=== PATIENT | male | born 1930 | race Caucasian/White ===

== ENCOUNTER 2016-07-11 09:51 | Outpatient (CLI) | END 2016-07-11 09:52 | disposition home or self-care (01) ==

== ENCOUNTER 2016-07-31 09:26 | Outpatient (CLI) | payer MEDICARE, OTHER | END 2016-07-31 09:27 | disposition home or self-care (01) | DX: I42.9 Cardiomyopathy, unspecified (principal); I48.92 Unspecified atrial flutter; Z79.899 Other long term (current) drug therapy ==

== ENCOUNTER 2016-08-01 10:26 | Outpatient (CLI) | payer MEDICARE, OTHER | END 2016-08-01 10:27 | disposition home or self-care (01) | DX: R06.00 Dyspnea, unspecified (principal); I48.2 Chronic atrial fibrillation; I51.7 Cardiomegaly; Z95.0 Presence of cardiac pacemaker; R91.8 Other nonspecific abnormal finding of lung field ==

== ENCOUNTER 2016-08-03 12:07 | Outpatient (CLI) | payer MEDICARE, OTHER | END 2016-08-03 12:08 | disposition home or self-care (01) | DX: I48.91 Unspecified atrial fibrillation (principal) ==

== ENCOUNTER 2016-08-06 09:27 | Outpatient (CLI) | payer MEDICARE, OTHER | END 2016-08-06 09:28 | disposition home or self-care (01) | DX: I48.91 Unspecified atrial fibrillation (principal); R06.00 Dyspnea, unspecified; I08.1 Rheumatic disorders of both mitral and tricuspid valves ==

== ENCOUNTER 2016-08-06 10:27 | Outpatient (CLI) | payer MEDICARE, OTHER | END 2016-08-06 10:28 | disposition home or self-care (01) | DX: I48.91 Unspecified atrial fibrillation (principal) ==

== ENCOUNTER 2016-08-23 11:15 | Outpatient (CLI) | payer MEDICARE, OTHER | END 2016-08-23 11:16 | disposition home or self-care (01) | DX: I48.91 Unspecified atrial fibrillation (principal) ==

== ENCOUNTER 2016-09-07 10:55 | Outpatient (CLI) | payer MEDICARE, OTHER | END 2016-09-07 10:56 | disposition home or self-care (01) | DX: I48.91 Unspecified atrial fibrillation (principal); R30.0 Dysuria ==

== ENCOUNTER 2016-09-20 10:39 | Outpatient (CLI) | payer MEDICARE, OTHER | END 2016-09-20 10:40 | disposition home or self-care (01) | DX: I25.10 Atherosclerotic heart disease of native coronary artery without angina pectoris (principal); I48.91 Unspecified atrial fibrillation ==

== ENCOUNTER 2016-11-13 12:09 | Outpatient (CLI) | payer MEDICARE, OTHER | END 2016-11-13 12:10 | disposition home or self-care (01) | DX: I48.91 Unspecified atrial fibrillation (principal) ==

== ENCOUNTER 2016-12-20 10:25 | Outpatient (CLI) | payer MEDICARE, OTHER | END 2016-12-20 10:26 | disposition home or self-care (01) | LOC: LAB 10:25 | PROVIDERS: ATTEND Internal Medicine | DX: I48.91 Unspecified atrial fibrillation (principal) | CPT/HCPCS: 85610 ==

== ENCOUNTER 2017-01-14 09:57 | Outpatient (CLI) | payer MEDICARE, OTHER ==
[2017-01-14 10:34] LABS: PT - PROTHROMBIN TIME 22.5 secs (9.9-12.6)
[2017-01-14 10:37] LABS: CREATININE 1.2 mg/dL (0.6-1.2)
== END 2017-01-14 09:58 | disposition home or self-care (01) ==
LOC: LAB 09:57
PROVIDERS: ATTEND Internal Medicine Critical Care Medicine
DX: R06.00 Dyspnea, unspecified (principal)
CPT/HCPCS: 36415; 82565; 85610

== ENCOUNTER 2017-02-18 09:14 | Outpatient (CLI) | payer MEDICARE, OTHER ==
--- NOTE | 2017-02-18 12:41 | CT Report ---
CT ABDOMEN AND PELVIS WITHOUT CONTRAST: 02/18/2017 CLINICAL INDICATION: Hematuria, flank pain. TECHNIQUE: Axial CT images of the abdomen and pelvis were obtained without oral or intravenous contr ast. FINDINGS: Limited evaluation of the lung bases demonstrates emphysematous changes and cardiomegaly. A pacemaker is noted. ABDOMEN: There is a 3 mm calculus in the right kidney. The left kidney appears unremarkable. No hy dronephrosis or hydroureter is seen. The liver, spleen, pancreas, and adrenal glands appear unremark able. The patient is status post cholecystectomy. A small hiatal hernia is noted. No bowel dilatat ion, free gas, or free fluid is present. No abdominal adenopathy is seen. PELVIS: Sigmoid diverticulosis is present, without CT evidence of diverticulitis. The appendix is s een in the right lower quadrant, and is normal in caliber. Imaging of the lower pelvis is limited by streak artifact from the right hip replacement. No adenopathy or free fluid is seen. Osseous structures demonstrate degenerative and postsurgical changes. IMPRESSION: A 3 MM RIGHT RENAL CALCULUS, WITHOUT EVIDENCE OF HYDRONEPHROSIS OR HYDROURETER. CHANGES OF CHOLECYSTECTOMY. In accordance with CT protocol optimization, one or more of the following dose reduction techniques w ere utilized for this exam: automated exposure control, adjustment of mA and/or KV based on patient size, or use of iterative reconstructive technique. JOB #: [id number] EXT JOB #:[id number]
== END 2017-02-18 09:15 | disposition home or self-care (01) ==
LOC: DI 09:14
PROVIDERS: ATTEND Nurse Practitioner Primary Care
DX: N20.0 Calculus of kidney (principal); I48.91 Unspecified atrial fibrillation; R10.9 Unspecified abdominal pain; K92.2 Gastrointestinal hemorrhage, unspecified; Z12.5 Encounter for screening for malignant neoplasm of prostate; Z90.49 Acquired absence of other specified parts of digestive tract
CPT/HCPCS: 36415; 74176; 80048; 85025; 85610; G0103; 84153

== ENCOUNTER 2017-02-18 09:53 | Outpatient (CLI) | payer MEDICARE, OTHER ==
[2017-02-18 11:03] LABS: INR 1.9 (0.8-1.2); PT - PROTHROMBIN TIME 21.6 secs (9.9-12.6)
[2017-02-18 11:10] LABS: CREATININE 1.2 mg/dL (0.6-1.2); POTASSIUM 4.3 mmol/L (3.5-5.0)
[2017-02-18 17:23] LABS: BASOPHILS % (AUTO) 0.6 %; EOSINOPHILS # (AUTO) 0.1 10^3/uL (0.0-0.7); EOSINOPHILS % (AUTO) 1.3 %; HCT - HEMATOCRIT 34.9 % (42.0-52.0); LYMPHOCYTES # (AUTO) 1.1 10^3/uL (1.5-3.5); LYMPHOCYTES % (AUTO) 17.1 %; MEAN CORPUSCULAR HEMOGLOBIN 33.4 pg (27.0-31.0); MEAN CORPUSCULAR HGB CONC 34.3 g/dL (32.0-36.0); MEAN CORPUSCULAR VOLUME 97.4 fL (80.0-94.0); MEAN PLATELET VOLUME 8.9 fL (7.4-11.4); MONOCYTES # (AUTO) 0.7 10^3/uL (0.0-1.0); MONOCYTES % (AUTO) 10.5 %; NEUTROPHILS # (AUTO) 4.6 10^3/uL (1.5-6.6); NEUTROPHILS % (AUTO) 70.5 %; RED BLOOD COUNT 3.58 10^6/uL (4.70-6.10); RED CELL DISTRIBUTION WIDTH 14.3 % (12.0-15.0); UNCORRECTED WHITE BLOOD COUNT 6.6 x10^3/uL; WHITE BLOOD COUNT 6.6 x10^3/uL (4.8-10.8)
== END 2017-02-18 09:54 | disposition home or self-care (01) ==
LOC: LAB 09:53
PROVIDERS: ATTEND Internal Medicine
DX: R10.9 Unspecified abdominal pain (principal); Z12.5 Encounter for screening for malignant neoplasm of prostate
CPT/HCPCS: 36415; 80048; 85025; 85610; G0103; 84153

== ENCOUNTER 2017-03-01 11:02 | Outpatient (CLI) | payer MEDICARE, OTHER ==
[2017-03-01 11:42] LABS: BASOPHILS % (AUTO) 0.7 %; EOSINOPHILS # (AUTO) 0.1 10^3/uL (0.0-0.7); EOSINOPHILS % (AUTO) 1.4 %; HCT - HEMATOCRIT 25.9 % (42.0-52.0); LYMPHOCYTES % (AUTO) 15.8 %; MEAN CORPUSCULAR HEMOGLOBIN 33.5 pg (27.0-31.0); MEAN CORPUSCULAR HGB CONC 34.6 g/dL (32.0-36.0); MEAN CORPUSCULAR VOLUME 96.8 fL (80.0-94.0); MEAN PLATELET VOLUME 7.5 fL (7.4-11.4); MONOCYTES # (AUTO) 0.7 10^3/uL (0.0-1.0); MONOCYTES % (AUTO) 11.3 %; NEUTROPHILS # (AUTO) 4.6 10^3/uL (1.5-6.6); NEUTROPHILS % (AUTO) 70.8 %; NUCLEATED RED BLOOD CELLS AUTO 0.1 /100WBC; RED BLOOD COUNT 2.67 10^6/uL (4.70-6.10); UNCORRECTED WHITE BLOOD COUNT 6.5 x10^3/uL; WHITE BLOOD COUNT 6.5 x10^3/uL (4.8-10.8)
[2017-03-01 13:03] LABS: FOLATE > 49.60 ng/mL (5.90 - >24.8)
== END 2017-03-01 11:03 | disposition home or self-care (01) ==
LOC: LAB 11:02
PROVIDERS: ATTEND Nurse Practitioner Family
DX: Z79.01 Long term (current) use of anticoagulants (principal)
CPT/HCPCS: 36415; 82607; 82746; 85025

== ENCOUNTER 2017-05-09 10:13 | Outpatient (CLI) | payer MEDICARE, OTHER | END 2017-05-09 10:14 | disposition home or self-care (01) | LOC: LAB 10:13 | PROVIDERS: ATTEND Internal Medicine | DX: I48.91 Unspecified atrial fibrillation (principal) | CPT/HCPCS: 85610 ==

== ENCOUNTER 2017-06-26 10:40 | Outpatient (CLI) | payer MEDICARE, OTHER | END 2017-06-26 10:41 | disposition home or self-care (01) | LOC: LAB 10:40 | PROVIDERS: ATTEND Internal Medicine | DX: I48.91 Unspecified atrial fibrillation (principal) | CPT/HCPCS: 85610 ==

== ENCOUNTER 2017-07-11 11:07 | Outpatient (CLI) | payer MEDICARE, OTHER | END 2017-07-11 11:08 | disposition home or self-care (01) | LOC: LAB 11:07 | PROVIDERS: ATTEND Internal Medicine | DX: I48.91 Unspecified atrial fibrillation (principal) | CPT/HCPCS: 85610 ==

== ENCOUNTER 2017-08-12 10:59 | Outpatient (CLI) | payer MEDICARE, OTHER | END 2017-08-12 11:00 | disposition home or self-care (01) | LOC: LAB 10:59 | PROVIDERS: ATTEND Internal Medicine | DX: I48.91 Unspecified atrial fibrillation (principal) | CPT/HCPCS: 85610 ==

== ENCOUNTER 2017-08-16 11:51 | Outpatient (CLI) | payer MEDICARE, OTHER ==
--- NOTE | 2017-08-16 12:38 | XRAY Report ---
RIGHT RIBS WITH FRONTAL CHEST: 08/16/2017 INDICATION: Fall, right-sided pain. COMPARISON: 08/01/2016. FINDINGS: Frontal view of the chest and oblique views of the right ribs demonstrate mildly displaced fractures of the right fourth, fifth, sixth, and seventh ribs laterally. The cardiac silhouette is enlarged. Right subclavian pacemaker and postoperative changes are stable. No effusion or pneumothorax is seen. IMPRESSION: MILDLY DISPLACED FRACTURES OF THE RIGHT LATERAL 4TH THROUGH 7TH RIBS. NO PNEUMOTHORAX. TD: 08/16/2017 12:38
== END 2017-08-16 11:52 | disposition home or self-care (01) ==
LOC: DI 11:51
PROVIDERS: ATTEND Physician Assistant Medical
DX: S22.41XA Multiple fractures of ribs, right side, initial encounter for closed fracture (principal); Z91.81 History of falling

== ENCOUNTER 2017-09-10 10:56 | Outpatient (CLI) | payer MEDICARE, OTHER | END 2017-09-10 10:57 | disposition home or self-care (01) | LOC: LAB 10:56 | PROVIDERS: ATTEND Internal Medicine | DX: I48.91 Unspecified atrial fibrillation (principal) | CPT/HCPCS: 85610 ==

== ENCOUNTER 2017-09-27 10:43 | Outpatient (CLI) | payer MEDICARE, OTHER ==
--- NOTE | 2017-09-27 13:22 | XRAY Report ---
FRONTAL CHEST WITH RIGHT RIBS: 09/27/2017 CLINICAL INDICATION: Rib fractures. COMPARISON: 08/16/2017. FINDINGS: Frontal view of the chest and oblique views of the right ribs demonstrate interval healing of the previously noted rib fractures. No new fractures are seen. Cardiomegaly, changes of previous cardiac surgery, and pacemaker are stable. The lungs remain clear. No effusion or pneumothorax is seen. IMPRESSION: HEALING RIGHT RIB FRACTURES. NO PNEUMOTHORAX. TD: 09/27/2017 13:21
== END 2017-09-27 10:44 | disposition home or self-care (01) ==
LOC: DI 10:43
PROVIDERS: ATTEND Physician Assistant Medical
DX: S22.41XD Multiple fractures of ribs, right side, subsequent encounter for fracture with routine healing (principal)

== ENCOUNTER 2017-10-14 11:08 | Outpatient (CLI) | payer MEDICARE, OTHER | END 2017-10-14 11:09 | disposition home or self-care (01) | LOC: LAB 11:08 | PROVIDERS: ATTEND Internal Medicine | DX: I48.91 Unspecified atrial fibrillation (principal) | CPT/HCPCS: 85610 ==

== ENCOUNTER 2017-11-20 11:06 | Outpatient (CLI) | payer MEDICARE, OTHER | END 2017-11-20 11:07 | disposition home or self-care (01) | LOC: LAB 11:06 | PROVIDERS: ATTEND Internal Medicine | DX: I48.91 Unspecified atrial fibrillation (principal) | CPT/HCPCS: 85610 ==

== ENCOUNTER 2017-12-20 10:49 | Outpatient (CLI) | payer MEDICARE, OTHER | END 2017-12-20 10:50 | disposition home or self-care (01) | LOC: LAB 10:49 | PROVIDERS: ATTEND Internal Medicine | DX: I48.91 Unspecified atrial fibrillation (principal) | CPT/HCPCS: 85610 ==

== ENCOUNTER 2018-01-02 09:09 | Outpatient (CLI) | payer MEDICARE, OTHER | END 2018-01-02 09:10 | disposition home or self-care (01) | LOC: LAB 09:09 | PROVIDERS: ATTEND Internal Medicine | DX: I48.91 Unspecified atrial fibrillation (principal) | CPT/HCPCS: 85610 ==

== ENCOUNTER 2018-01-16 09:10 | Outpatient (CLI) | payer MEDICARE, OTHER ==
[2018-01-16 09:40] LABS: INR 2.7 (0.8-1.2); PT - PROTHROMBIN TIME 29.1 secs (9.9-12.6)
[2018-01-16 10:03] LABS: ALBUMIN/GLOBULIN RATIO 1.4 (1.0-2.2); ALKALINE PHOSPHATASE 92 IU/L (42-121); ALT ALANINE AMINOTRANSFERASE 15 IU/L (10-60); AST ASPARTATE AMINOTRANSFERASE 20 IU/L (10-42); BILIRUBIN,TOTAL 1.6 mg/dL (0.2-1.0); BUN - BLOOD UREA NITROGEN 15 mg/dL (6-20); CALCIUM 9.1 mg/dL (8.5-10.3); CARBON DIOXIDE - CO2 30 mmol/L (21-32); CHLORIDE 99 mmol/L (101-111); CHOL/HDL RATIO 1.8 (<5.0); CHOLESTEROL 103 mg/dL; CREATININE 1.1 mg/dL (0.6-1.2); GFR - MDRD 63 (>89); GLUCOSE 112 mg/dL (70-100); HDL CHOLESTEROL 56 mg/dL; LDL CHOLESTEROL,CALCULATED 33 mg/dL; LDL/HDL RATIO 0.6 (<3.6); SODIUM 139 mmol/L (135-145); TOTAL PROTEIN 6.9 g/dL (6.7-8.2); VLDL CHOLESTEROL 14 mg/dL
== END 2018-01-16 09:11 | disposition home or self-care (01) ==
LOC: LAB 09:10
PROVIDERS: ATTEND Nurse Practitioner Primary Care
DX: I48.91 Unspecified atrial fibrillation (principal); E78.5 Hyperlipidemia, unspecified; R06.00 Dyspnea, unspecified; Z79.01 Long term (current) use of anticoagulants; M54.5 Low back pain; N20.0 Calculus of kidney; J84.9 Interstitial pulmonary disease, unspecified
CPT/HCPCS: 36415; 80053; 80061; 83721; 85610

== ENCOUNTER 2018-02-13 10:58 | Outpatient (CLI) | payer MEDICARE, OTHER | END 2018-02-13 10:59 | disposition home or self-care (01) | LOC: LAB 10:58 | PROVIDERS: ATTEND Internal Medicine | DX: I48.91 Unspecified atrial fibrillation (principal) | CPT/HCPCS: 85610 ==

== ENCOUNTER 2018-03-20 10:28 | Outpatient (CLI) | payer MEDICARE, OTHER | END 2018-03-20 10:29 | disposition home or self-care (01) | LOC: LAB 10:28 | PROVIDERS: ATTEND Internal Medicine | DX: I48.91 Unspecified atrial fibrillation (principal) | CPT/HCPCS: 85610 ==

== ENCOUNTER 2018-04-08 11:40 | Outpatient (CLI) | payer MEDICARE, OTHER ==
[2018-04-08 12:40] LABS: BASOPHILS # (AUTO) 0.1 10^3/uL (0.0-0.1); EOSINOPHILS # (AUTO) 0.1 10^3/uL (0.0-0.7); EOSINOPHILS % (AUTO) 1.8 %; LYMPHOCYTES # (AUTO) 1.6 10^3/uL (1.5-3.5); LYMPHOCYTES % (AUTO) 26.1 %; MEAN CORPUSCULAR HEMOGLOBIN 32.9 pg (27.0-31.0); MEAN CORPUSCULAR HGB CONC 34.7 g/dL (32.0-36.0); MEAN CORPUSCULAR VOLUME 94.9 fL (80.0-94.0); MEAN PLATELET VOLUME 8.2 fL (7.4-11.4); MONOCYTES # (AUTO) 0.6 10^3/uL (0.0-1.0); MONOCYTES % (AUTO) 10.6 %; NEUTROPHILS # (AUTO) 3.7 10^3/uL (1.5-6.6); NEUTROPHILS % (AUTO) 60.5 %; PLT - PLATELET COUNT 171 10^3/uL (130-450); RED BLOOD COUNT 3.94 10^6/uL (4.70-6.10); RED CELL DISTRIBUTION WIDTH 14.1 % (12.0-15.0); WHITE BLOOD COUNT 6.1 x10^3/uL (4.8-10.8)
[2018-04-08 12:50] LABS: INR 2.5 (0.8-1.2); PT - PROTHROMBIN TIME 27.6 secs (9.9-12.6)
== END 2018-04-08 11:41 | disposition home or self-care (01) ==
LOC: LAB 11:40
PROVIDERS: ATTEND Internal Medicine
DX: Z79.01 Long term (current) use of anticoagulants (principal); E03.9 Hypothyroidism, unspecified; I48.91 Unspecified atrial fibrillation
CPT/HCPCS: 36415; 84443; 85025; 85610

== ENCOUNTER 2018-05-06 11:41 | Outpatient (CLI) | payer MEDICARE, OTHER | END 2018-05-06 11:42 | disposition home or self-care (01) | LOC: LAB 11:41 | PROVIDERS: ATTEND Internal Medicine | DX: I48.91 Unspecified atrial fibrillation (principal) | CPT/HCPCS: 85610 ==

== ENCOUNTER 2018-05-23 10:43 | Outpatient (CLI) | payer MEDICARE, OTHER | END 2018-05-23 10:44 | disposition home or self-care (01) | LOC: LAB 10:43 | PROVIDERS: ATTEND Internal Medicine | DX: I48.91 Unspecified atrial fibrillation (principal) | CPT/HCPCS: 85610 ==

== ENCOUNTER 2018-06-05 10:11 | Outpatient (CLI) | payer MEDICARE, OTHER | END 2018-06-05 10:12 | disposition home or self-care (01) | LOC: LAB 10:11 | PROVIDERS: ATTEND Internal Medicine | DX: I48.91 Unspecified atrial fibrillation (principal) | CPT/HCPCS: 85610 ==

== ENCOUNTER 2018-06-26 13:05 | Outpatient (CLI) | payer MEDICARE, OTHER ==
--- NOTE | 2018-06-26 17:03 | DEXA Report ---
Reason: COLLAPSED VERTEBRA,NOT ELSEWHERE CLASSIFIED,THORAC Procedure Date: 06/26/2018 Accession Number: [id number] / [id number] Procedure: DEX - Dexa Spine and/or Hip CPT Code: FULL RESULT: EXAM: Dexa Spine and/or Hip DATE: 06/26/2018 2:13 PM CLINICAL HISTORY: COLLAPSED VERTEBRA,NOT ELSEWHERE CLASSIFIED,THORAC TECHNIQUE: Dual energy x-ray absorptiometry (DXA) was performed on a [employer] System. Regions measured are the AP Spine, femoral neck, and if needed forearm. COMPARISON: None. In accordance with the International Society for Clinical Densitometry (ISCD) guidelines, data from previous exams may be reanalyzed using current recommendations and techniques. This is done to allow a more accurate basis for comparison with the current study. FINDINGS: The data for the lumbar spine is as follows: BMD (g/cm/cm) T-SCORE Z-SCORE REGION L1 1.165 0.0 1.0 L2 1.279 0.3 1.3 L3 1.189 -0.4 0.6 L4 1.168 -0.6 0.4 TOTAL 1.198 -0.2 0.8 NOTE: All evaluable vertebrae are used for classification The data for the hip is as follows: BMD (g/cm/cm) T-SCORE Z-SCORE REGION Neck 0.929 -1.1 0.8 TOTAL 0.951 -1.0 0.5 NOTE: The femoral neck or total proximal femur, whichever is lowest, is used for classification. IMPRESSION: THE WHO CLASSIFICATION BASED ON THE INTERNATIONAL REFERENCE STANDARD IS OSTEOPENIA. THE FRACTURE RISK IS INCREASED. RECOMMENDATION: Patients with diagnosis of osteoporosis or osteopenia should have regular bone mineral density assessment. For those eligible for Medicare, routine testing is allowed once every 2 years. Testing frequency can be increased for patients who have rapidly progressing disease or for those who are receiving medical therapy to restore bone mass. COMMENT: World Health Organization (WHO) definitions for osteoporosis and osteopenia: NORMAL BMD: T-score at -1.0 or higher, fracture risk is low OSTEOPENIA BMD: T-score between -1.0 and -2.5, fracture risk is increased. OSTEOPOROSIS BMD: T-score at -2.5 or lower, fracture risk is high. National Osteoporosis Foundation recommends: 1. Obtain adequate dietary calcium (at least 1200 mg per day) and vitamin D (400-800 international units per day). 2. Participate, as appropriate, in regular weightbearing and muscle-strengthening exercise. 3. Avoid tobacco use and reduce alcohol and caffeine intake. 4. For more detailed information see the website at www.NOF.org.
== END 2018-06-26 13:06 | disposition home or self-care (01) ==
LOC: DI 13:05
PROVIDERS: ATTEND Nurse Practitioner Primary Care
DX: M48.54XA Collapsed vertebra, not elsewhere classified, thoracic region, initial encounter for fracture (principal); M85.89 Other specified disorders of bone density and structure, multiple sites
CPT/HCPCS: 77080

== ENCOUNTER 2018-07-03 09:33 | Outpatient (CLI) | payer MEDICARE, OTHER | END 2018-07-03 09:34 | disposition home or self-care (01) | LOC: LAB 09:33 | PROVIDERS: ATTEND Internal Medicine | DX: I48.91 Unspecified atrial fibrillation (principal) | CPT/HCPCS: 85610 ==

== ENCOUNTER 2018-07-24 14:09 | Outpatient (CLI) | payer MEDICARE, OTHER | END 2018-07-24 14:10 | disposition home or self-care (01) | LOC: LAB 14:09 | PROVIDERS: ATTEND Internal Medicine | DX: I48.91 Unspecified atrial fibrillation (principal) | CPT/HCPCS: 85610 ==

== ENCOUNTER 2018-08-21 09:36 | Outpatient (CLI) | payer MEDICARE, OTHER | END 2018-08-21 09:37 | disposition home or self-care (01) | LOC: LAB 09:36 | PROVIDERS: ATTEND Internal Medicine | DX: I48.91 Unspecified atrial fibrillation (principal) | CPT/HCPCS: 85610 ==

== ENCOUNTER 2018-10-01 11:01 | Outpatient (CLI) | payer MEDICARE, OTHER | END 2018-10-01 11:02 | disposition home or self-care (01) | LOC: LAB 11:01 | PROVIDERS: ATTEND Internal Medicine | DX: I48.91 Unspecified atrial fibrillation (principal); Z79.01 Long term (current) use of anticoagulants | CPT/HCPCS: 85610 ==

== ENCOUNTER 2018-10-06 10:51 | Outpatient (CLI) | payer MEDICARE, OTHER ==
[2018-10-06 11:24] LABS: HGB - HEMOGLOBIN 12.5 g/dL (14.0-18.0); MEAN CORPUSCULAR HEMOGLOBIN 32.9 pg (27.0-31.0); MEAN CORPUSCULAR VOLUME 96.7 fL (80.0-94.0); MEAN PLATELET VOLUME 8.3 fL (7.4-11.4); RED BLOOD COUNT 3.81 10^6/uL (4.70-6.10); RED CELL DISTRIBUTION WIDTH 14.4 % (12.0-15.0); WHITE BLOOD COUNT 6.6 x10^3/uL (4.8-10.8)
[2018-10-06 11:36] LABS: ALBUMIN 4.2 g/dL (3.2-5.5); ALBUMIN/GLOBULIN RATIO 1.6 (1.0-2.2); BILIRUBIN,TOTAL 1.5 mg/dL (0.2-1.0); CALCIUM 8.9 mg/dL (8.5-10.3); CREATININE 1.1 mg/dL (0.6-1.2); TOTAL PROTEIN 6.9 g/dL (6.7-8.2)
== END 2018-10-06 10:52 | disposition home or self-care (01) ==
LOC: LAB 10:51
PROVIDERS: ATTEND Nurse Practitioner Family
DX: I48.2 Chronic atrial fibrillation (principal); I25.10 Atherosclerotic heart disease of native coronary artery without angina pectoris; D64.9 Anemia, unspecified; R68.89 Other general symptoms and signs
CPT/HCPCS: 36415; 80053; 84443; 85027

== ENCOUNTER 2018-10-31 10:47 | Outpatient (CLI) | payer MEDICARE, OTHER | END 2018-10-31 10:48 | disposition home or self-care (01) | LOC: LAB 10:47 | PROVIDERS: ATTEND Internal Medicine | DX: I48.91 Unspecified atrial fibrillation (principal); Z79.01 Long term (current) use of anticoagulants | CPT/HCPCS: 85610 ==

== ENCOUNTER 2018-11-26 11:14 | Outpatient (CLI) | payer MEDICARE, OTHER | END 2018-11-26 11:15 | disposition home or self-care (01) | LOC: LAB 11:14 | PROVIDERS: ATTEND Internal Medicine | DX: I48.91 Unspecified atrial fibrillation (principal); Z79.01 Long term (current) use of anticoagulants | CPT/HCPCS: 85610 ==

== ENCOUNTER 2018-12-04 09:50 | Outpatient (CLI) | payer MEDICARE, OTHER | END 2018-12-04 09:51 | disposition home or self-care (01) | LOC: LAB 09:50 | PROVIDERS: ATTEND Internal Medicine | DX: I48.91 Unspecified atrial fibrillation (principal); Z79.01 Long term (current) use of anticoagulants | CPT/HCPCS: 85610 ==

== ENCOUNTER 2018-12-11 10:05 | Outpatient (CLI) | payer MEDICARE, OTHER | END 2018-12-11 10:06 | disposition home or self-care (01) | LOC: LAB 10:05 | PROVIDERS: ATTEND Internal Medicine | DX: I48.91 Unspecified atrial fibrillation (principal); Z79.01 Long term (current) use of anticoagulants | CPT/HCPCS: 85610 ==

== ENCOUNTER 2018-12-23 13:17 | Outpatient (CLI) | payer MEDICARE, OTHER | END 2018-12-23 13:18 | disposition home or self-care (01) | LOC: SC 13:17 | PROVIDERS: ATTEND Internal Medicine Pulmonary Disease | DX: G47.8 Other sleep disorders (principal); R06.83 Snoring; Z87.891 Personal history of nicotine dependence | CPT/HCPCS: 99203; G0463; 99212 ==

== ENCOUNTER 2019-01-02 19:40 | Outpatient (CLI) | payer MEDICARE, OTHER | END 2019-01-02 19:41 | disposition home or self-care (01) | LOC: SC 19:40 | PROVIDERS: ATTEND Internal Medicine Pulmonary Disease | DX: G47.33 Obstructive sleep apnea (adult) (pediatric) (principal); G47.31 Primary central sleep apnea; G47.61 Periodic limb movement disorder | CPT/HCPCS: 95810 ==

== ENCOUNTER 2019-01-07 10:03 | Outpatient (CLI) | payer MEDICARE, OTHER | END 2019-01-07 10:04 | disposition home or self-care (01) | LOC: LAB 10:03 | PROVIDERS: ATTEND Internal Medicine | DX: Z79.01 Long term (current) use of anticoagulants (principal); I48.91 Unspecified atrial fibrillation | CPT/HCPCS: 85610 ==

== ENCOUNTER 2019-01-21 14:53 | Outpatient (CLI) | payer MEDICARE, OTHER | END 2019-01-21 14:54 | disposition home or self-care (01) | LOC: SC 14:53 | PROVIDERS: ATTEND Nurse Practitioner Family | DX: G47.33 Obstructive sleep apnea (adult) (pediatric) (principal); G47.31 Primary central sleep apnea; I49.3 Ventricular premature depolarization; G47.61 Periodic limb movement disorder | CPT/HCPCS: 99215; G0463; 99212 ==

== ENCOUNTER 2019-02-06 | Outpatient (CLI) | payer MEDICARE, OTHER | END 2019-02-06 10:52 | disposition home or self-care (01) ==

== ENCOUNTER 2019-03-04 10:12 | Outpatient (CLI) | payer MEDICARE, OTHER | END 2019-03-04 10:13 | disposition home or self-care (01) | LOC: LAB 10:12 | PROVIDERS: ATTEND Family Medicine | DX: Z79.01 Long term (current) use of anticoagulants (principal); I48.91 Unspecified atrial fibrillation | CPT/HCPCS: 85610 ==

== ENCOUNTER 2019-03-20 10:08 | Outpatient (CLI) | payer MEDICARE, OTHER | END 2019-03-20 10:09 | disposition home or self-care (01) | LOC: LAB 10:08 | PROVIDERS: ATTEND Family Medicine | DX: I48.91 Unspecified atrial fibrillation (principal); Z79.01 Long term (current) use of anticoagulants | CPT/HCPCS: 85610 ==

== ENCOUNTER 2019-04-13 11:10 | Outpatient (CLI) | payer MEDICARE, OTHER ==
[2019-04-13 12:31] VITALS: BP 108/60
--- NOTE | 2019-04-13 12:31 | SLEEP CARE CONSULTATION ---
Information from patient questionnaire entered by Ruth Padron. I have reviewed and concur with the information entered by Ruth Padron. This document represents the service I personally performed and the decisions made by me, Carmen Lopez, RN, MSN, [employer]. History of Present Illness Previous diagnosis: Severe, Obstructive Sleep Apnea-Hypopnea Syndrome, Central Sleep Apnea-Hypopnea Syndrome AHI: 37.2 Reason for CPAP/BiPAP follow up: first compliance Equipment type: CPAP Equipment obtained from: [employer] Mask style: Nasal Backup mask available: Yes (keep current mask as spare when replaced) Last cushion change: a couple of days ago Prior sleep studies: Yes Year and Where: 2018 [facility] additional information: A manual titration study was not done as ordered. Patient would prefer not to complete. Patient currently on O2 at night with his CPAP. He was started on oxygen for nocturnal use only shortly before his sleep study by his pulmonlogist Dr. Dover. CPAP Compliance Data - Data Reviewed with Patient Average duration of nightly device use: 9h 23m Compliance rate %: 100 Current pressure setting (cmH2O): 4-15 Average residual AHI: 0.1 (median pressure 6.9 & 95th is [id number]) On Oxygen: Yes (2 liters as before CPAP. ) Subjective Patient concerns: reports: mask discomfort (resolved but now having some very mild erythema at top of nasal mask ), mask leak noise (a few times), nasal congestion (some increase in nasal congestion), dry mouth, nose, throat (mild overall and increased when mask not fitting well. ). denies: aerophagia, air blowing in eyes, condensation in mask/hose, epistaxis Observed to snore while using device: No Current pressure setting perceived as: too low (seemed not enough last night with nasal congestion.) On therapy, patient: reports: sleeping better (sleeps through), awakening more refreshed, being more awake and alert during the day, more rested overall (only rests for about 30 minutes a day, no longer requires a nap. ). denies: drowsiness while driving Initial [place] Sleepiness Scale score: 1 Current [place] Sleepiness Scale score: 2 Allergies and Home Medications Known drug allergies: Yes (fosiniopril ) Home medication list reviewed: Yes Allergy and home medication list: Medication Name (generic/name brand) Strength & Dosage Carvedilol 25mg tab one twice daily Torsemide 20mg tab one twice daily Losartan Potassium 25mg tab one daily Atorvastatin 20mg tab one daily Warfarin 2.5mg and 5mg take as directed Levothyroxine 50mcg tab one daily except Saturday Hydrocodone-Acetaminophen 5-325mg tab one as needed Ambien 5mg tab one daily at bedtime as needed Vitamin D 2000IU tab one daily Multivitamin Tab one daily Allergy List Fosinipril Review of Systems Review of systems same as previous: Yes Physical Exam Blood Pressure: 108/60 Cuff size: regular Heart Rate: 54 O2 Saturation: 95 Height: 5 ft 9.75 in Weight: 167 lb 3.2 oz Body Mass Index: 24.1 BMI Classification: Healthy weight Impression and Plan 1. Obstructive and Central Sleep Apnea-Hypopnea Syndrome, severe with good treatment compliance and good apnea control. On CPAP therapy, the patient has better sleep quality and is more rested overall. For his air hunger, I will change his autoCPAP range to [id number]. He is to contact me if the pressure change is uncomfortable or does not resolve air hunger. To reduce mask erythema, I showed him how to adjust mask correctly to allow give of mask cushion while reducing mask leaks but not adding pressure to nose. He was also informed how washing his mask daily when he brushes his teeth will reduce mask movement from skin oils. He was unaware he needed wash it. Print out of how to care for equipment given and reviewed. For dryness symptoms, I showed him how to increase his humidity on his CPAP he brought in.This should also reduce his nasal congestion. He does not have a heated hose and informed to call me if condensation so I can order one. He asked more questions about the sleep study and why the pulse range was down during Epoch shown as he had a pacemaker. I responded that perhaps the pacemaker was not responding and will check with Dr. Eastman. I also asked why the manual titration study was not done. He states he would prefer not to repeat the test. He did not sleep well the first time. He then asked if he still needed oxygen, I explained how the titration study could determine this by evaluating if oxygen is still needed after his apnea is controlled. The sleep study would be started without oxygen and added only if saturation at 88% or less more than 5 minutes and AHI at or less than 10. He is planning a trip with his and wonders if he should take his oxygen, he is to discuss with Dr. Dover who ordered. After further discussion, he agreed to have the manual titration study to determine if oxygen needed after his apnea is well controlled. Patient's apnea severity and rationale for treatment to reduce apnea, improve sleep quality and reduce cardiovascular and cerebrovascular events was reviewed. I also reviewed the benefit of consistent device use of CPAP for hypertension, cardiac disease, arrhythmia. * Schedule manual titration study * Change CPAP pressure to 7-10 cmH2O * Adjust mask as directed. * Clean equipment at directed * Notify me if snoring with mask or feeling that the pressure is too much or too little * Copy of compliance given. * Copy of PLMS explanation given that was forgotten at last visit. * Return for follow up after sleep study completed, or sooner if concerns arise I spent 100% of this 45 minute visit face to face with the patient with greater than 50% of this was spent time counseling the patient and coordination of care. Patient is also hard of hearing so took extra time to communicate and answer his many questions diagnosis and treatment.
== END 2019-04-13 11:11 | disposition home or self-care (01) ==
LOC: SC 11:10
PROVIDERS: ATTEND Nurse Practitioner Family
DX: G47.33 Obstructive sleep apnea (adult) (pediatric) (principal); G47.31 Primary central sleep apnea
CPT/HCPCS: 99215; G0463; 99212

== ENCOUNTER 2019-04-30 10:14 | Outpatient (CLI) | payer MEDICARE, OTHER | END 2019-04-30 10:15 | disposition home or self-care (01) | LOC: LAB 10:14 | PROVIDERS: ATTEND Family Medicine | DX: Z79.01 Long term (current) use of anticoagulants (principal); I48.91 Unspecified atrial fibrillation | CPT/HCPCS: 85610 ==

== ENCOUNTER 2019-06-01 09:27 | Outpatient (CLI) | payer MEDICARE, OTHER | END 2019-06-01 09:28 | disposition short-term general hospital (02) | LOC: EMS 09:27 | PROVIDERS: ATTEND Surgery | DX: M25.551 Pain in right hip (principal); M25.552 Pain in left hip; W19.XXXA Unspecified fall, initial encounter; Z96.641 Presence of right artificial hip joint | CPT/HCPCS: A0425; A0428 ==

== ENCOUNTER 2019-07-22 10:23 | Outpatient (CLI) | payer MEDICARE, OTHER | END 2019-07-22 10:24 | disposition home or self-care (01) | LOC: LAB 10:23 | PROVIDERS: ATTEND Family Medicine | DX: Z79.01 Long term (current) use of anticoagulants (principal); I48.91 Unspecified atrial fibrillation | CPT/HCPCS: 85610 ==

== ENCOUNTER 2019-08-06 09:42 | Outpatient (CLI) | payer MEDICARE, OTHER | END 2019-08-06 09:43 | disposition home or self-care (01) | LOC: LAB 09:42 | PROVIDERS: ATTEND Family Medicine | DX: I48.91 Unspecified atrial fibrillation (principal); Z79.01 Long term (current) use of anticoagulants | CPT/HCPCS: 85610 ==

== ENCOUNTER 2019-10-12 13:12 | Outpatient (CLI) | payer MEDICARE, OTHER | END 2019-10-12 13:13 | disposition home or self-care (01) | LOC: LAB 13:12 | PROVIDERS: ATTEND Family Medicine | DX: I48.91 Unspecified atrial fibrillation (principal); Z79.01 Long term (current) use of anticoagulants | CPT/HCPCS: 85610 ==

== ENCOUNTER 2019-10-14 16:41 | Outpatient (CLI) | payer MEDICARE, OTHER ==
--- NOTE | 2019-10-14 13:31 | SLEEP CARE CONSULTATION ---
Information from patient questionnaire entered by Ruth Padron. I have reviewed and concur with the information entered by Ruth Padron. This document represents the service I personally performed and the decisions made by me, Carmen Lopez, RN, MSN, [employer] MACHINE OPERATOR. History of Present Illness Service Date and Time: 10/14/2019 1641 Previous diagnosis: Severe, Obstructive Sleep Apnea-Hypopnea Syndrome, Central Sleep Apnea-Hypopnea Syndrome AHI: 37.2 Reason for follow up: other (2 month with pressure change) Equipment type: CPAP Equipment obtained from: [employer] Mask style: Nasal Backup mask available: No (keep mask when replaced) Last cushion change: 4-5 days ago Prior sleep studies: Yes CPAP Compliance Data - Data Reviewed with Patient Average duration of nightly device use: 10h 11m Compliance rate %: 100 Current pressure setting (cmH2O): 7-9 Average residual AHI: 0.1 Subjective Patient concerns: reports: dry mouth, nose, throat, other (slight swelling under eyes but much less since he loosened his mask as advised at his last visit). denies: aerophagia, mask discomfort, air blowing in eyes, mask leak noise, condensation in mask/hose, nasal congestion, epistaxis Observed to snore while using device: No Current pressure setting perceived as: comfortable On therapy, patient: reports: sleeping better, awakening more refreshed, being more awake and alert during the day, more rested overall (much more rested). denies: drowsiness while driving, other Initial [place] Sleepiness Scale score: 1 Allergies and Home Medications Home medication list reviewed: No Physical Exam Height: 5 ft 9.75 in Impression and Plan 1. Obstructive Sleep Apnea-Hypopnea Syndrome, severe, with good treatment compli ance and good apnea control. On CPAP therapy, the patient has better sleep quality and is much more rested overall. The new pressure is very comfortable and patient is pleased with the benefit of CPAP treatment. He reports the periorbital edema has significantly reduced with loosening his mask but some is still present for a few hours after he takes off his mask in the morning. Thus I advised him to slightly loosen mask further. In addition, I discussed a mask refitting to a mask that sits below nose rather than around nose to see if this cause less swelling. I will make a prescription and have staff fax to his DME. I also discussed with patient about following up with PCP to see if there is any medical cause of edema. He agreed with plan. To reduce oral dryness, he is to increase humidity. If any problems in how to complete, he can call his DME. Patient's apnea severity and rationale for treatment to reduce apnea, improve sleep quality and reduce cardiovascular and cerebrovascular events was reviewed. * Continue CPAP pressure at 7-9 cmH2O * loosen mask * mask refitting * contact PCP if continued eye swelling * adjust humidity * Notify me if snoring with mask or feeling that the pressure is too much or too little * Attempt to lose weight * Call this office if any problems using CPAP * Return for follow up in 6 months , or sooner if concerns arise * Visit Type: Telehealth Phone (to minimize COVID virus exposure. Patient agrees to billing his insurance.) Location of Provider: Home Patient agrees and consents to this telehealth visit type: Yes Time Spent with Patient (minutes): 10 patient is hard of hearing and extra time needed to communicate Provider Statement: I spent 100% of the Telehealth Phone Call with the patient with greater than 50% spent counseling the patient and coordination of care.
== END 2019-10-14 16:42 | disposition home or self-care (01) ==
LOC: SC 16:41
PROVIDERS: ATTEND Nurse Practitioner Family
DX: G47.33 Obstructive sleep apnea (adult) (pediatric) (principal)

== ENCOUNTER 2019-10-29 11:15 | Outpatient (CLI) | payer MEDICARE, OTHER | END 2019-10-29 11:16 | disposition home or self-care (01) | LOC: LAB 11:15 | PROVIDERS: ATTEND Family Medicine | DX: I48.91 Unspecified atrial fibrillation (principal); Z79.01 Long term (current) use of anticoagulants | CPT/HCPCS: 85610 ==

== ENCOUNTER 2019-11-19 10:35 | Outpatient (CLI) | payer MEDICARE, OTHER | END 2019-11-19 10:36 | disposition home or self-care (01) | LOC: LAB 10:35 | PROVIDERS: ATTEND Family Medicine | DX: I48.91 Unspecified atrial fibrillation (principal); Z79.01 Long term (current) use of anticoagulants | CPT/HCPCS: 85610 ==

== ENCOUNTER 2019-12-03 09:19 | Outpatient (CLI) | payer MEDICARE, OTHER | END 2019-12-03 09:20 | disposition home or self-care (01) | LOC: LAB 09:19 | PROVIDERS: ATTEND Family Medicine | DX: I48.91 Unspecified atrial fibrillation (principal); Z79.01 Long term (current) use of anticoagulants | CPT/HCPCS: 85610 ==

== ENCOUNTER 2020-02-04 09:31 | Outpatient (CLI) | payer MEDICARE, OTHER | END 2020-02-04 09:32 | disposition home or self-care (01) | LOC: LAB 09:31 | PROVIDERS: ATTEND Family Medicine | DX: I48.91 Unspecified atrial fibrillation (principal); Z79.01 Long term (current) use of anticoagulants | CPT/HCPCS: 85610 ==

== ENCOUNTER 2020-03-08 09:34 | Outpatient (CLI) | payer MEDICARE, OTHER | END 2020-03-08 09:35 | disposition home or self-care (01) | LOC: LAB 09:34 | PROVIDERS: ATTEND Family Medicine | DX: I48.91 Unspecified atrial fibrillation (principal); Z79.01 Long term (current) use of anticoagulants | CPT/HCPCS: 85610 ==

== ENCOUNTER 2020-03-16 16:22 | Outpatient (CLI) | payer MEDICARE, OTHER | END 2020-03-16 16:23 | disposition home or self-care (01) | LOC: LAB 16:22 | PROVIDERS: ATTEND Family Medicine | DX: I48.91 Unspecified atrial fibrillation (principal); Z79.01 Long term (current) use of anticoagulants | CPT/HCPCS: 85610 ==

== ENCOUNTER 2020-05-02 15:49 | Outpatient (CLI) | payer MEDICARE, OTHER ==
[2020-05-02 16:43] LABS: ALBUMIN 4.1 g/dL (3.2-5.5); ALBUMIN/GLOBULIN RATIO 1.6 (1.0-2.2); BILIRUBIN,TOTAL 1.5 mg/dL (0.2-1.0); CALCIUM 9.2 mg/dL (8.5-10.3); TOTAL PROTEIN 6.7 g/dL (6.7-8.2)
[2020-05-02 16:47] LABS: BASOPHILS % (AUTO) 0.5 %; EOSINOPHILS # (AUTO) 0.1 10^3/uL (0.0-0.7); EOSINOPHILS % (AUTO) 0.9 %; HGB - HEMOGLOBIN 12.4 g/dL (14.0-18.0); LYMPHOCYTES # (AUTO) 1.4 10^3/uL (1.5-3.5); LYMPHOCYTES % (AUTO) 24.3 %; MEAN CORPUSCULAR HEMOGLOBIN 33.1 pg (27.0-31.0); MEAN CORPUSCULAR HGB CONC 33.4 g/dL (32.0-36.0); MEAN CORPUSCULAR VOLUME 98.9 fL (80.0-94.0); MEAN PLATELET VOLUME 10.5 fL (7.4-11.4); MONOCYTES # (AUTO) 0.8 10^3/uL (0.0-1.0); MONOCYTES % (AUTO) 13.3 %; NEUTROPHILS # (AUTO) 3.5 10^3/uL (1.5-6.6); NEUTROPHILS % (AUTO) 60.7 %; PLT - PLATELET COUNT 154 10^3/uL (130-450); RED BLOOD COUNT 3.75 10^6/uL (4.70-6.10); RED CELL DISTRIBUTION WIDTH 14.6 % (12.0-15.0); WHITE BLOOD COUNT 5.8 x10^3/uL (4.8-10.8)
[2020-05-02 16:48] LABS: INR 2.9 (0.8-1.2); PT - PROTHROMBIN TIME 30.4 secs (9.9-12.6)
[2020-05-02 17:01] LABS: THYROID STIMULATING HORMONE 0.97 uIU/mL (0.34-5.60)
[2020-05-02 17:03] LABS: FREE T3 2.56 pg/mL (2.5-3.9)
[2020-05-02 17:04] LABS: FREE T4 (FREE THYROXINE) 1.14 ng/dL (0.58-1.64)
== END 2020-05-02 15:50 | disposition home or self-care (01) ==
LOC: LAB 15:49
PROVIDERS: ATTEND Family Medicine
DX: I48.91 Unspecified atrial fibrillation (principal); Z79.01 Long term (current) use of anticoagulants; E03.9 Hypothyroidism, unspecified; I12.9 Hypertensive chronic kidney disease with stage 1 through stage 4 chronic kidney disease, or unspecified chronic kidney disease; N18.9 Chronic kidney disease, unspecified; G47.33 Obstructive sleep apnea (adult) (pediatric); Z79.891 Long term (current) use of opiate analgesic; I25.10 Atherosclerotic heart disease of native coronary artery without angina pectoris
CPT/HCPCS: 36415; 80053; 84439; 84443; 84481; 85025; 85610

== ENCOUNTER 2020-05-10 12:49 | Outpatient (CLI) | payer MEDICARE, OTHER ==
--- NOTE | 2020-05-10 13:35 | SLEEP CARE CONSULTATION ---
Information from patient questionnaire entered by Gloria Shook. I have reviewed and concur with the information entered by Gloria Shook. This document represents the service I personally performed and the decisions made by me, Kwaku Eastman MD, [facility]. History of Present Illness Service Date and Time: 05/10/2020 1249 Previous diagnosis: Severe, Obstructive Sleep Apnea-Hypopnea Syndrome, Central Sleep Apnea-Hypopnea Syndrome AHI: 37.2 (in 2019) Reason for follow up: six month Equipment type: CPAP Equipment obtained from: [employer] Mask style: Nasal Prior sleep studies: Yes Year and Where: 2019 - [facility] HPI additional information: HPI: Mr. Sellers was returns to follow up on the nasal CPAP therapy. He was diagnosed to have severe obstructive sleep apnea-hypopnea syndrome. The patient wears a nasal mask. He reports using the device nightly and all through the night. [employer] is his durable medical supplier. The compliance report shows usage in 180 nights out of the past 180 nights, averaging 9.6 hours a night. The > 4 hour compliance rate for the past 30 days is 100%. He complained of no particular problem with the device such as soreness on the face, dry nose, epistaxis, nasal congestion or headache. He thinks that the pressure of 7 9 cmH2O is comfortable. On the CPAP therapy he notices improvement in his sleep quality, and that he wakes up feeling fresher in the morning and more awake/alert during the day. [place] Sleepiness Scale score is 3. His notices no snore at all. The average residual AHI is 0.3; and average air leak is 6.4 L/minute. The 90th percentile pressure is 8.7 cmH2O. He also bleeds in oxygen at 2 L/minute. CPAP Compliance Data - Data Reviewed with Patient Average duration of nightly device use: 9.7 Compliance rate %: 100 (180 days) Current pressure setting (cmH2O): 7-9 Humidity settin Average residual AHI: 0.3 Subjective Initial [place] Sleepiness Scale score: 1 (in 2019) Current [place] Sleepiness Scale score: 3 Allergies and Home Medications Drug allergies reviewed: Yes Home medication list reviewed: Yes Review of Systems Review of systems same as previous: Yes Physical Exam Vital signs obtained and entered by: To minimize the risk of COVID-19 exposure, detailed exam was not performed. Height: 5 ft 9.75 in Impression and Plan IMPRESSION: 1. Obstructive Sleep Apnea-Hypopnea Syndrome, severe, with the patient doing well on nasal CPAP therapy + oxygen. He has excellent compliance and significant clinical improvement. The current pressure appears effective and comfortable. His mask fits well. Overall, he is very satisfied with treatment and plans to continue with it long-term. No adjustment is necessary today. He asked about a battery pack to power the CPAP when he loses the electricity. PLAN: 1. Continue with autoCPAP set at 7 - 9 cmH2O. 2. Consider using a deep cycle battery via an inverter. 3. Return in one year for follow up or earlier if there is any problem with the treatment. Visit Type: In Office Time Spent with Patient (minutes): 15 Provider Statement: I spent 100% of the Face to Face Visit with the patient with greater than 50% spent counseling the patient and coordination of care.
== END 2020-05-10 12:50 | disposition home or self-care (01) ==
LOC: SC 12:49
PROVIDERS: ATTEND Internal Medicine Pulmonary Disease
DX: G47.33 Obstructive sleep apnea (adult) (pediatric) (principal)
CPT/HCPCS: 99213; G0463; 99212

== ENCOUNTER 2020-06-09 09:35 | Outpatient (CLI) | payer MEDICARE, OTHER | END 2020-06-09 09:36 | disposition home or self-care (01) | LOC: LAB 09:35 | PROVIDERS: ATTEND Family Medicine | DX: I48.91 Unspecified atrial fibrillation (principal); Z79.01 Long term (current) use of anticoagulants | CPT/HCPCS: 85610 ==

== ENCOUNTER 2020-06-24 09:25 | Outpatient (CLI) | payer MEDICARE, OTHER | END 2020-06-24 09:26 | disposition home or self-care (01) | LOC: LAB 09:25 | PROVIDERS: ATTEND Family Medicine | DX: Z79.01 Long term (current) use of anticoagulants (principal); I48.91 Unspecified atrial fibrillation | CPT/HCPCS: 85610 ==

== ENCOUNTER 2020-06-28 09:26 | Outpatient (CLI) | payer MEDICARE, OTHER | END 2020-06-28 09:27 | disposition home or self-care (01) | LOC: LAB 09:26 | PROVIDERS: ATTEND Family Medicine | DX: Z79.01 Long term (current) use of anticoagulants (principal); I48.91 Unspecified atrial fibrillation | CPT/HCPCS: 85610 ==

== ENCOUNTER 2020-07-18 09:31 | Outpatient (CLI) | payer MEDICARE, OTHER | END 2020-07-18 09:32 | disposition home or self-care (01) | LOC: LAB 09:31 | PROVIDERS: ATTEND Family Medicine | DX: I48.91 Unspecified atrial fibrillation (principal); Z79.01 Long term (current) use of anticoagulants | CPT/HCPCS: 85610 ==

== ENCOUNTER 2020-08-12 10:27 | Outpatient (CLI) | payer MEDICARE, OTHER ==
[2020-08-12 12:30] LABS: CALCIUM 9.3 mg/dL (8.5-10.3); CREATININE 1.1 mg/dL (0.6-1.2); URIC ACID 8.1 mg/dL (2.6-7.2)
== END 2020-08-12 23:59 | disposition home or self-care (01) ==
LOC: LAB.N 10:27
PROVIDERS: ATTEND Family Medicine
DX: M10.9 Gout, unspecified (principal)
CPT/HCPCS: 36415; 80048; 80053; 84439; 84443; 84481; 84550; 85025; 85610

== ENCOUNTER 2020-08-15 08:00 | Outpatient (CLI) | payer MEDICARE, OTHER | END 2020-08-15 23:59 | disposition home or self-care (01) | LOC: LAB.N 08:00 | PROVIDERS: ATTEND Family Medicine | DX: Z79.01 Long term (current) use of anticoagulants (principal); Z53.9 Procedure and treatment not carried out, unspecified reason ==

== ENCOUNTER 2020-08-30 15:14 | Outpatient (CLI) | payer MEDICARE, OTHER | END 2020-08-30 15:15 | disposition home or self-care (01) | LOC: LAB 15:14 | PROVIDERS: ATTEND Family Medicine | DX: Z79.01 Long term (current) use of anticoagulants (principal); I48.91 Unspecified atrial fibrillation | CPT/HCPCS: 85610 ==

== ENCOUNTER 2020-08-31 08:00 | Outpatient (CLI) | payer MEDICARE, OTHER | END 2020-08-31 23:59 | disposition home or self-care (01) | LOC: LAB.WCP 08:00 | PROVIDERS: ATTEND Family Medicine | DX: Z79.01 Long term (current) use of anticoagulants (principal); I48.91 Unspecified atrial fibrillation ==

== ENCOUNTER 2020-09-13 08:48 | Emergency (ER) | payer MEDICARE, OTHER ==
[2020-09-13 09:00] VITALS: BP 129/64
--- NOTE | 2020-09-13 09:57 | ED Physician Documentation ---
PD HPI LOWER EXT INJURY - Stated complaint Stated Complaint: RT LEG LAC, GLF - Chief complaint Chief Complaint: Laceration - History obtained from History obtained from: Patient - Additional information Additional information: Patient comes emergency department chief complaint of injury to right jackson 3 days ago. He states he was stepping up onto his deck after working in the yard when he struck his right lower leg against the step. He states he did not fall and was not injured in any other way, but takes warfarin for A. fib, and developed a large hematoma on the lateral aspect of his right lower leg. He states that initially, it was the "size of a baseball", but that seems to have gone down a bit in the days since. Patient also has sustained a an abrasion to his anterior tibial area, and this is continued to ooze on and off since then. Patient states that he took only half a tab of his Coumadin that night, and then has skipped taking the Coumadin for the last 2 days since. He is here because he is concerned about the swelling, the bruising, and the fact that the wound has not formed a solid scab. Patient denies any strokelike symptoms. No chest pain or shortness of breath. No easy bruising or bleeding beyond the usual anywhere else. No other complaints at this time. Review of Systems Ten Systems: 10 systems reviewed and negative Constitutional: reports: Reviewed and negative Eyes: reports: Reviewed and negative Ears: reports: Reviewed and negative Nose: reports: Reviewed and negative Throat: reports: Reviewed and negative Cardiac: reports: Reviewed and negative Respiratory: reports: Reviewed and negative GI: reports: Reviewed and negative : reports: Reviewed and negative Skin: reports: Abrasion (s), Other (contusion/hematoma) Musculoskeletal: reports: Reviewed and negative Neurologic: reports: Reviewed and negative Psychiatric: reports: Reviewed and negative Endocrine: reports: Reviewed and negative Immunocompromised: reports: Reviewed and negative PD PAST MEDICAL HISTORY - Past Medical History Past Medical History: Yes Cardiovascular: Congestive heart failure, Hypertension, High cholesterol, Coronary artery disease, [place], Atrial fibrillation Respiratory: COPD, Shortness of breath, Other Neuro: None Endocrine/Autoimmune: HyPOthyroidism GI: None : None HEENT: None Psych: None Musculoskeletal: None Derm: None - Past Surgical History Past Surgical History: Yes Ortho: Hip replacement Cardiovascular: CABG, Pacemaker - Present Medications Home Medications: Ambulatory Orders Medication Instructions Recorded Confirmed Levothyroxine [Synthroid] 50 mcg PO QDAC 04/07/13 09/13/20 Losartan [Cozaar] 25 mg PO DAILY PM 04/07/13 09/13/20 Torsemide 20 mg PO BID 04/07/13 09/13/20 Warfarin [Coumadin] 5 mg PO DAILY 04/07/13 09/13/20 carvediloL [Coreg] 25 mg PO BID 04/07/13 09/13/20 Warfarin [Coumadin] 2.5 mg ORAL DAILY 05/31/15 09/13/20 Cholecalciferol (Vitamin D3) 2,500 unit PO DAILY 07/05/15 09/13/20 [Vitamin D] Multivitamin [Daily Value] 1 each PO DAILY 07/05/15 09/13/20 Hydrocodone/Acetaminophen 1 - 2 each PO Q6H PRN #10 tablet 08/17/15 09/13/20 [Hydrocodon-Acetaminophen 5-325] Atorvastatin [Lipitor] 20 mg ORAL HS 09/13/20 09/13/20 Ubidecarenone [Co Q-10] 200 mg PO DAILY 09/13/20 09/13/20 - Allergies Allergies/Adverse Reactions: Allergies Allergy/AdvReac Type Severity Reaction Status Date / Time fosinopril sodium * AdvReac Respiratory Verified 09/13/20 08:54 [From Monopril] - Social History Does the pt smoke?: No Smoking Status: Former smoker Does the pt drink ETOH?: Yes Does the pt have substance abuse?: No - Immunizations Immunizations are current?: Yes PD ED PE NORMAL - Vitals Vital signs reviewed: Yes - General General: Alert and oriented X 3, No acute distress, Well developed/nourished - HEENT HEENT: Atraumatic, PERRL, EOMI, Moist mucous membranes - Neck Neck: Supple, no meningeal sign - Cardiac Cardiac: RRR, No murmur - Respiratory Respiratory: No respiratory distress, Clear bilaterally - Abdomen Abdomen: Soft, Non tender, Non distended - Derm Derm: Warm and dry, Other (8 x 10 cm area of contusion and induration on proximal right lower leg. Approximately 1 to 2 cm of elevation noted.) - Extremities Extremities: No deformity, No calf tenderness / cord (Induration/swelling noted above on right lower leg is anterior/lateral and adjacent to the anterior tibial area. 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 His INR was found to be 2.0, despite having been off his Coumadin for 2 days. I discussed with the patient that it is very important that he gets his INRs checked regularly, as it is very likely that he was supratherapeutic at the time of his injury. He does not have active bleeding from his wound and I think that it will heal well with the Surgicel dressing initially. We have discussed the need for follow-up and the usual indications for return. Departure - Departure Disposition: 01 Home, Self Care Clinical Impression: Hematoma, Abrasion Condition: Stable Instructions: ED Abrasion, ED Hematoma Comments: Despite being off your Coumadin for 2 days, your INR is still at 2.0, which is therapeutic. As such, it is very likely that your INR was too high when you sustained her injury. This is probably why you had so much bleeding and why you are wound has not formed a solid scab yet. Despite all this, it is important that you stay on the Coumadin, as you do run the risk of clot formation in your heart, which could break loose into your circulation and cause you to have a stroke. This is far more serious than the injury to your leg. Please continue to ice the injured area and elevate your leg whenever possible. Please keep the bandage we have placed on for the next couple of days. Do not try to take the spongy material that we have placed off of your legjust let it come off on its own. This will help your wound to form a scab. You should have your INR checked in the next few days to make sure it is not going too high again. Please call your doctors office to get this set up. Discharge Date/Time: 09/13/20 11:00
[2020-09-13 10:16] LABS: PT - PROTHROMBIN TIME 21.7 secs (9.9-12.6)
== END 2020-09-13 11:00 | disposition home or self-care (01) ==
LOC: ED 08:48
DX: S80.11XA Contusion of right lower leg, initial encounter (principal); S80.811A Abrasion, right lower leg, initial encounter; W22.09XA Striking against other stationary object, initial encounter; Y93.01 Activity, walking, marching and hiking; Y92.008 Other place in unspecified non-institutional (private) residence as the place of occurrence of the external cause; R79.1 Abnormal coagulation profile; Z79.01 Long term (current) use of anticoagulants; I48.91 Unspecified atrial fibrillation; I11.0 Hypertensive heart disease with heart failure; I50.9 Heart failure, unspecified; Z95.0 Presence of cardiac pacemaker; Z87.891 Personal history of nicotine dependence
CPT/HCPCS: 36415; 85610; 99283; 99284

== ENCOUNTER 2020-09-15 09:24 | Outpatient (CLI) | payer MEDICARE, OTHER | END 2020-09-15 09:25 | disposition home or self-care (01) | LOC: LAB 09:24 | PROVIDERS: ATTEND Family Medicine | DX: Z79.01 Long term (current) use of anticoagulants (principal); I48.91 Unspecified atrial fibrillation | CPT/HCPCS: 85610 ==

== ENCOUNTER 2020-09-16 08:00 | Outpatient (CLI) | payer MEDICARE, OTHER | END 2020-09-16 23:59 | disposition home or self-care (01) | LOC: LAB.WCP 08:00 | PROVIDERS: ATTEND Family Medicine | DX: I48.91 Unspecified atrial fibrillation (principal); Z79.01 Long term (current) use of anticoagulants ==

== ENCOUNTER 2020-09-30 09:27 | Outpatient (CLI) | payer MEDICARE, OTHER | END 2020-09-30 09:28 | disposition home or self-care (01) | LOC: LAB 09:27 | PROVIDERS: ATTEND Family Medicine | DX: I48.91 Unspecified atrial fibrillation (principal); Z79.01 Long term (current) use of anticoagulants | CPT/HCPCS: 85610 ==

== ENCOUNTER 2020-10-13 08:00 | Outpatient (CLI) | payer MEDICARE, OTHER | END 2020-10-13 23:59 | disposition home or self-care (01) | LOC: LAB 08:00 | PROVIDERS: ATTEND Family Medicine | DX: Z79.01 Long term (current) use of anticoagulants (principal); I48.91 Unspecified atrial fibrillation | CPT/HCPCS: 85610 ==

== ENCOUNTER 2020-11-02 09:22 | Outpatient (CLI) | payer MEDICARE, OTHER | END 2020-11-02 09:23 | disposition home or self-care (01) | LOC: LAB 09:22 | PROVIDERS: ATTEND Family Medicine | DX: Z79.01 Long term (current) use of anticoagulants (principal); I48.91 Unspecified atrial fibrillation | CPT/HCPCS: 36416; 85610 ==

== ENCOUNTER 2020-11-30 09:40 | Outpatient (CLI) | payer MEDICARE, OTHER ==
[2020-11-30 10:13] LABS: CALCIUM 9.2 mg/dL (8.5-10.3); CREATININE 1.2 mg/dL (0.6-1.2); POTASSIUM 4.2 mmol/L (3.5-5.0)
== END 2020-11-30 09:41 | disposition home or self-care (01) ==
LOC: LAB 09:40
PROVIDERS: ATTEND Family Medicine
DX: I48.91 Unspecified atrial fibrillation (principal); Z79.01 Long term (current) use of anticoagulants; G47.33 Obstructive sleep apnea (adult) (pediatric); I50.9 Heart failure, unspecified; I25.10 Atherosclerotic heart disease of native coronary artery without angina pectoris
CPT/HCPCS: 36415; 80048; 83880; 85610

== ENCOUNTER 2020-12-19 09:37 | Outpatient (CLI) | payer MEDICARE, OTHER | END 2020-12-19 23:59 | disposition home or self-care (01) | LOC: LAB 09:37 | PROVIDERS: ATTEND Family Medicine | DX: I48.91 Unspecified atrial fibrillation (principal); Z79.01 Long term (current) use of anticoagulants | CPT/HCPCS: 36416; 85610 ==